=== PATIENT | male | born 1945 | race American Indian/Alaskan Native ===

== ENCOUNTER 2017-07-29 09:16 | Inpatient (IN) | payer MEDICARE, MEDICAID ==
[2017-07-29 10:34] LABS: Basophils % (Auto) 0.3 % (0.0-1.8); Eosinophils % (Auto) 1.6 % (0.0-4.3); Hematocrit 43.7 % (35.5-45.6); Hemoglobin 14.4 gm/dl (11.8-15.2); Mean Corpuscular HGB Conc 33 % (32-34); Mean Corpuscular Hemoglobin 30 pg (28-32); Mean Corpuscular Volume 91 fl (84-94); Platelet Count 280 K/mm3 (140-440); Red Blood Count 4.81 M/mm3 (3.65-5.03); Red Cell Distribution Width 15.2 % (13.2-15.2); White Blood Count 8.9 K/mm3 (4.5-11.0)
[2017-07-29 10:39] LABS: Anion Gap 18 mmol/L; BUN/Creatinine Ratio 25; Blood Urea Nitrogen 20 mg/dL (9-20); Calcium 9.6 mg/dL (8.4-10.2); Carbon Dioxide 28 mmol/L (22-30); Chloride 99.8 mmol/L (98-107); Glucose 138 mg/dL (75-100); Potassium 3.9 mmol/L (3.6-5.0); Sodium 142 mmol/L (137-145)
[2017-07-29] MEDS ORDERED: NITRO-BID 2% TP ONE (15:38)
[2017-07-29] MEDS ORDERED: MORPHINE IV PRN ×2 (15:38→16:54)
[2017-07-29] MEDS ORDERED: ZOFRAN IV PRN ×2 (15:38→16:54)
--- NOTE | 2017-07-29 15:57 | Emergency Department Report ---
HPI - General Chief Complaint: Chest Pain Time Seen by Provider: 07/29/17 15:37 - HPI HPI: Room 24 The patient is a 72-year-old male presented with a chief complaint of chest pain. Patient states his symptoms began this morning at 06:00 after eating he felt hot and became diaphoretic. Patient states he developed substernal chest tightness has been intermittent and associated with shortness of breath and nausea. Patient denies vomiting. The patient currently denies chest tightness. The patient states he's never had a stress test or cardiac catheterization Location: Chest Duration: Intermittent since 06:00 Quality: Tightness Severity: Currently 0/10 Modifying factors: [see above] Context: [see above] Mode of transportation: [not driving] ED Past Medical Hx - Past Medical History Previous Medical History?: Yes Hx Hypertension: Yes Additional medical history: High Cholesterol - Surgical History Past Surgical History?: No - Family History Family history: no significant - Social History Smoking Status: Never Smoker Substance Use Type: None ED Review of Systems ROS: Stated complaint: ABDOMINAL PAIN Other details as noted in HPI Constitutional: diaphoresis Eyes: denies: eye pain ENT: denies: throat pain Respiratory: shortness of breath Cardiovascular: chest pain Gastrointestinal: vomiting. denies: nausea Genitourinary: denies: dysuria Musculoskeletal: denies: back pain Neurological: denies: headache Physical Exam - Physical Exam Vital Signs: Vital Signs 07/29/17 07/29/17 09:32 14:51 Temperature 98.4 F 98.1 F Pulse Rate 92 H 88 Respiratory 16 17 Rate Blood Pressure 119/60 Blood Pressure 117/58 [Right] O2 Sat by Pulse 99 100 Oximetry Physical Exam: GENERAL: The patient is well-developed well-nourished male lying on stretcher not appearing to be in acute distress. [] HEENT: Normocephalic. Atraumatic. Extraocular motions are intact. Patient has moist mucous membranes. NECK: Supple. Trachea midline CHEST/LUNGS: Clear to auscultation. There is no respiratory distress noted. HEART/CARDIOVASCULAR: Regular. There is no tachycardia. There is no gallop rub or murmur. ABDOMEN: Abdomen is soft, nontender. Patient has normal bowel sounds. There is no abdominal distention. SKIN: There is no rash. There is no edema. There is no diaphoresis. NEURO: The patient is awake, alert, and oriented. The patient is cooperative. The patient has normal speech MUSCULOSKELETAL: There is no evidence of acute injury. ED Course Vital Signs 07/29/17 07/29/17 09:32 14:51 Temperature 98.4 F 98.1 F Pulse Rate 92 H 88 Respiratory 16 17 Rate Blood Pressure 119/60 Blood Pressure 117/58 [Right] O2 Sat by Pulse 99 100 Oximetry ED Medical Decision Making - Lab Data Result diagrams: 07/29/17 10:04 07/29/17 10:00 Laboratory Tests 07/29/17 07/29/17 07/29/17 10:00 10:04 12:30 WBC 8.9 RBC 4.81 Hgb 14.4 Hct 43.7 MCV 91 MCH 30 MCHC 33 RDW 15.2 Plt Count 280 Lymph % (Auto) 12.1 L [place] % (Auto) 7.5 H Eos % (Auto) 1.6 Baso % (Auto) 0.3 Lymph # 1.1 L [place] # 0.7 Eos # 0.1 Baso # 0.0 Seg Neutrophils % 78.5 H Seg Neutrophils # 7.0 Sodium 142 Potassium 3.9 Chloride 99.8 Carbon Dioxide 28 Anion Gap 18 BUN 20 Creatinine 0.8 Estimated GFR > 60 BUN/Creatinine Ratio 25 Glucose 138 H Calcium 9.6 Troponin T < 0.010 < 0.010 07/29/17 15:17 WBC RBC Hgb Hct MCV MCH MCHC RDW Plt Count Lymph % (Auto) [place] % (Auto) Eos % (Auto) Baso % (Auto) Lymph # [place] # Eos # Baso # Seg Neutrophils % Seg Neutrophils # Sodium Potassium Chloride Carbon Dioxide Anion Gap BUN Creatinine Estimated GFR BUN/Creatinine Ratio Glucose Calcium Troponin T < 0.010 - EKG Data -: EKG Interpreted by Me EKG shows normal: sinus rhythm Rate: normal - EKG Data When compared to previous EKG there are: previous EKG unavailable Interpretation: other (right bundle-branch block) - Radiology Data Radiology results: image reviewed (chest x-ray) interpreted by me: Chest x-ray-no focal infiltrates, no pneumothorax - Differential Diagnosis ACS, GERD, pericarditis Critical care attestation.: If time is entered above; I have spent that time in minutes in the direct care of this critically ill patient, excluding procedure time. ED Disposition Clinical Impression: Chest pain Disposition: 09 OP ADMIT IP TO THIS HOSP Is pt being admited?: Yes Does the pt Need Aspirin: Yes Condition: Fair Instructions: Chest Pain (ED) Referrals: PRIMARY CARE,MD [Primary Care Provider] - 3-5 Days Time of Disposition: 16:24 (Hospitalist notified (Dr Gonzalez))
[2017-07-29] MEDS ORDERED: ASPIRIN PO ONE (16:25)
[2017-07-29] MEDS ORDERED: BABY ASPIRIN PO STA (16:54)
[2017-07-29] MEDS ORDERED: PROVENTIL IH PRN (16:54)
[2017-07-29] MEDS ORDERED: TYLENOL PO PRN (16:54)
[2017-07-29] MEDS ORDERED: NITROSTAT SL PRN (16:54)
[2017-07-29] MEDS ORDERED: SODIUM CHLORIDE FLUSH SYRINGE 10 ML IV PRN (16:54)
--- NOTE | 2017-07-29 17:01 | History and Physical Report ---
History of Present Illness Chief complaint: My chest hurts History of present illness: 72 YO Male with HTN, HLD, presents to ED for evaluation. Pt states that he experienced pain in his chest that began this morning at 0600 hrs. Pt states that the pain at the time was 6/10, substernal, nonradiating, associated with nausea and diaphoresis, and shortness of breath. Pt denies worsening with exertion, or relief with rest. No reports of fever, chills, palpitations, syncope, productive cough, hemoptysis, BRBPR, unintentional weight loss, night sweats, or bone pain. Pt seen and evaluated in ED and found to have symptoms consistent with ACS. Pt admitted to telemetry. Past History Past Medical History: hypertension, hyperlipidemia Past Surgical History: No surgical history, Other (reviewed) Social history: single. denies: smoking, alcohol abuse, prescription drug abuse Family history: hypertension Medications and Allergies Allergies Allergy/AdvReac Type Severity Reaction Status Date / Time No Known Allergies Allergy Verified 07/29/17 09:31 Home Medications Medication Instructions Recorded Confirmed Last Taken Type Hydralazine HCl 50 mg PO BID 07/29/17 07/29/17 07/29/17 History Simvastatin [Zocor TAB] 10 mg PO QHS 07/29/17 07/29/17 07/29/17 History Valsartan/Hydrochlorothiazide 1 each PO DAILY 07/29/17 07/29/17 07/29/17 History [Valsartan-Hctz 320-12.5 mg Tab] Active Meds: Active Medications Acetaminophen (Tylenol) 650 mg PO Q4H PRN PRN Reason: Pain MILD(1-3)/Fever >100.5/HAYNES Albuterol (Proventil) 2.5 mg IH Q4HRT PRN PRN Reason: Shortness Of Breath Aspirin (Baby Aspirin) 324 mg PO ONCE STA Stop: 07/29/17 16:55 Miscellaneous Medication (Hydralazine Hcl [Hydralazine Hcl]) 50 mg PO BID TARYN Miscellaneous Medication (Simvastatin) 10 mg PO QHS TARYN Miscellaneous Medication (Valsartan/Hydrochlorothiazide [Valsartan-Hctz 320- 12.5 Mg Tab]) 1 each PO DAILY TARYN Morphine Sulfate (Morphine) 6 mg IV ONCE PRN PRN Reason: Pain Morphine Sulfate (Morphine) 2 mg IV Q4H PRN PRN Reason: Pain, Moderate (4-6) Nitroglycerin (Nitrostat) 0.4 mg SL Q5M PRN PRN Reason: Chest Pain Ondansetron HCl (Zofran) 8 mg IV ONCE PRN PRN Reason: Nausea Ondansetron HCl (Zofran) 4 mg IV Q8H PRN PRN Reason: N/V unrelieved by Reglan Sodium Chloride (Sodium Chloride Flush Syringe 10 Ml) 10 ml IV PRN PRN PRN Reason: LINE FLUSH Review of Systems Constitutional: no weight loss, no weight gain, no fever, no chills Ears, nose, mouth and throat: no ear pain, no ear discharge, no tinnitis, no decreased hearing, no nose pain, no nasal congestion Cardiovascular: chest pain, no orthopnea, no palpitations, no edema, no syncope Respiratory: no cough, no cough with sputum, no excessive sputum, no hemoptysis Gastrointestinal: no abdominal pain, no nausea, no vomiting, no diarrhea, no constipation Genitourinary Male: no dysuria, no hematuria, no flank pain, no discharge, no urinary frequency, no urinary hesitancy Rectal: no pain, no incontinence, no bleeding Musculoskeletal: no neck pain, no shooting arm pain, no arm numbness/tingling, no low back pain, no shooting leg pain, no leg numbness/tingling Integumentary: no rash, no pruritis, no redness, no sores, no wounds, no jaundice Neurological: no head injury, no paralysis, no weakness, no parathesias, no numbness, no tingling, no seizures Psychiatric: no anxiety, no memory loss, no change in sleep habits, no sleep disturbances, no insomnia, no hypersomnia Endocrine: no cold intolerance, no heat intolerance, no polyphagia, no excessive thirst, no polydipsia, no polyuria Hematologic/Lymphatic: no easy bruising, no easy bleeding Allergic/Immunologic: no urticaria, no allergic rhinitis, no wheezing Exam - Constitutional Vitals: Temp Pulse Resp BP Pulse Ox 98.1 F 88 17 117/89 100 07/29/17 14:51 07/29/17 16:51 07/29/17 14:51 07/29/17 16:51 07/29/17 14:51 General appearance: Present: no acute distress, well-nourished - EENT Eyes: Present: PERRL ENT: hearing intact, clear oral mucosa - Neck Neck: Present: supple, normal ROM - Respiratory Respiratory effort: normal Respiratory: bilateral: CTA - Cardiovascular Heart Sounds: Present: S1 & S2. Absent: rub, click - Extremities Extremities: pulses symmetrical, No edema Peripheral Pulses: within normal limits - Abdominal General gastrointestinal: Present: soft, non-tender, non-distended, normal bowel sounds Male genitourinary: Present: normal - Integumentary Integumentary: Present: clear, warm, dry - Musculoskeletal Musculoskeletal: gait normal, strength equal bilaterally - Psychiatric Psychiatric: appropriate mood/affect, intact judgment & insight - Neurologic Neurologic: CNII-XII intact, moves all extremities Results - Labs CBC & Chem 7: 07/29/17 17:07 07/29/17 17:07 Labs: Abnormal lab results 07/29/17 07/29/17 Range/Units 10:00 10:04 Lymph % (Auto) 12.1 L (13.4-35.0) % [place] % (Auto) 7.5 H (0.0-7.3) % Lymph # 1.1 L (1.2-5.4) K/mm3 Seg Neutrophils % 78.5 H (40.0-70.0) % Glucose 138 H (75-100) mg/dL Assessment and Plan - Patient Problems (1) ACS (acute coronary syndrome) Current Visit: Yes Status: Acute Plan to address problem: Chest pain protocol: Serial cardiac enzymes, ekg,telemetry, D-dimer, echo, stress test, Cardiology consult, morphine, oxygen, nitro tabs, aspirin. (2) HTN (hypertension) Current Visit: Yes Status: Acute Plan to address problem: Monitor bp q shift, continue medical management. (3) HLD (hyperlipidemia) Current Visit: Yes Status: Acute Plan to address problem: lipid panel, statin therapy (4) DVT prophylaxis Current Visit: Yes Status: Acute
[2017-07-29 17:26] LABS: Basophils % (Auto) 0.4 % (0.0-1.8); Eosinophils % (Auto) 1.4 % (0.0-4.3); Hematocrit 41.6 % (35.5-45.6); Hemoglobin 13.6 gm/dl (11.8-15.2); Mean Corpuscular HGB Conc 33 % (32-34); Mean Corpuscular Hemoglobin 30 pg (28-32); Mean Corpuscular Volume 90 fl (84-94); Platelet Count 283 K/mm3 (140-440); Red Blood Count 4.61 M/mm3 (3.65-5.03)
[2017-07-29 18:01] LABS: Anion Gap 16 mmol/L; BUN/Creatinine Ratio 19; Blood Urea Nitrogen 17 mg/dL (9-20); Calcium 9.5 mg/dL (8.4-10.2); Carbon Dioxide 30 mmol/L (22-30); Chloride 101.2 mmol/L (98-107); Cholesterol 170 mg/dL (50-199); Glucose 89 mg/dL (75-100); HDL Cholesterol 51 mg/dL (40-59); LDL Cholesterol,Direct 105 mg/dL (50-130); Potassium 4.1 mmol/L (3.6-5.0); Sodium 143 mmol/L (137-145); Triglycerides 71 mg/dL (2-149)
--- NOTE | 2017-07-29 20:31 | XRay Report ---
FINAL REPORT PROCEDURE: XR CHEST 1V AP TECHNIQUE: Chest radiograph anteroposterior view. CPT 07186 HISTORY: chest pain COMPARISON: No prior studies are available for comparison. FINDINGS: Heart: Normal. Mediastinum/Vessels: Normal. Lungs/Pleural space: Normal. Bony thorax: No acute osseous abnormality. Life support devices: None. IMPRESSION: No acute cardiopulmonary abnormality.
[2017-07-29] MEDS ORDERED: PRAVACHOL PO SCH (22:00)
[2017-07-29] MEDS ORDERED: NON-FORMULARY (Hydralazine Hcl [Hydralazine Hcl] 50 MG) PO SCH (22:00)
[2017-07-29] MEDS ORDERED: NON-FORMULARY (Simvastatin 10 MG) PO SCH (22:00)
[2017-07-29] MEDS: APRESOLINE PO SCH (22:30)
[2017-07-30] MEDS ORDERED: LEXISCAN IV ONE (08:54)
[2017-07-30 09:56] VITALS: BP 157/95
[2017-07-30] MEDS ORDERED: HCTZ PO SCH (10:00)
[2017-07-30] MEDS ORDERED: DIOVAN PO SCH (10:00)
[2017-07-30] MEDS ORDERED: HYDROCHLOROTHIAZIDE PO SCH (10:00)
[2017-07-30] MEDS ORDERED: VALSARTAN PO SCH (10:00)
[2017-07-30] MEDS: APRESOLINE PO SCH (11:54)
[2017-07-30] MEDS ORDERED: Fluarix Quad 2017-2018(36 MOS+ IM ONE (12:00)
[2017-07-30] MEDS ORDERED: PNEUMOVAX 23 IM ONE (12:00)
--- NOTE | 2017-07-30 14:01 | Discharge Summary ---
Providers - Providers Date of Admission: 07/29/17 16:54 Attending physician: RAÚL KYLE MD 07/29/17 Consult to Cardiac Rehabilitation [CONS] Routine Reason For Exam: Phase I Primary care physician: C[employer]PERATOR Hospitalization Reason for admission: chest pain Condition: Stable Hospital course: 72 YO Male with HTN, HLD, presents to ED for evaluation. Pt states that he experienced pain in his chest that began this morning at 0600 hrs S sugar tachycardia.. Pt states that the pain at the time was 6/10, substernal, nonradiating, associated with nausea and diaphoresis, and shortness of breath. Pt denies worsening with exertion, or relief with rest. No reports of fever, chills, syncope, productive cough, hemoptysis, BRBPR, unintentional weight loss , night sweats, or bone pain. Pt seen and evaluated in ED and found to have symptoms consistent with ACS. Pt admitted to telemetry. Patient was started on ACS protocol with heparin drip. A symptomology did not account for that. She proceeded to have a stress test which was read as negative. His symptoms has improved no further tachycardia or palpitation noted as he had earlier noted at home. I recommended that he follows up with his primary care physician and possibly an outpatient cardiology follow-up. Discharge diagnosis Atypical chest pain likely costochondritis Hypertension Hyperlipidemia Disposition: DC-01 TO HOME OR SELFCARE Time spent for discharge: 35 mins Core Measure Documentation - Palliative Care Palliative Care/ Comfort Measures: Not Applicable - Core Measures Any of the following diagnoses?: none - VTE Discharge Requirements Deep Vein Thrombosis/Pulmonary Embolism Present on Admission: No Exam - Physical Exam Narrative exam: VITAL SIGNS: Reviewed. GENERAL: The patient appeared well nourished and normally developed. Vital signs as documented. HEAD: No signs of head trauma. EYES: Pupils are equal. Extraocular motions intact. EARS: Hearing grossly intact. MOUTH: Oropharynx is normal. NECK: No adenopathy, no JVD. CHEST: Chest with clear breath sounds bilaterally. No wheezes, rales, or rhonchi. CARDIAC: Regular rate and rhythm. S1 and S2, without murmurs, gallops, or rubs. VASCULAR: No Edema. Peripheral pulses normal and equal in all extremities. ABDOMEN: Soft, without detectable tenderness. No sign of distention. No rebound or guarding, and no masses palpated. Bowel Sounds normal. MUSCULOSKELETAL: Good range of motion of all major joints. Extremities without clubbing, cyanosis or edema. NEUROLOGIC EXAM: Alert and oriented x 3. No focal sensory or strength deficits. Speech normal. Follows commands. PSYCHIATRIC: Mood normal. SKIN: No rash or lesions. - Constitutional Vitals: Temp Pulse Resp BP Pulse Ox 97.6 F 65 18 157/95 100 07/30/17 09:55 07/30/17 09:55 07/30/17 09:55 07/30/17 09:55 07/30/17 09:55 Plan Activity: advance as tolerated, fall precautions Diet: low fat Follow up with: SENA BUCHANAN MD [Staff Physician] - 7 Days Forms: Discharge Signature Page
--- NOTE | 2017-07-31 01:13 | Treadmill Report ---
INDICATION: Chest pain. FINDINGS: There is no scintigraphic evidence of myocardial ischemia. The left ventricle is normal in size and systolic function. The left ventricular ejection fraction is measured at 68%. Normal wall motion and wall thickening is noted on gated imaging. CONCLUSION: Normal perfusion scan. JOB# [id number] [place]
== END 2017-07-30 15:47 | disposition home or self-care (01) | DRG 206 ==
LOC: ED 09:16 → 4A 16:54
PROVIDERS: ADMIT Internal Medicine; ATTEND Internal Medicine
PROC: 3E0234Z Introduction of Serum, Toxoid and Vaccine into Muscle, Percutaneous Approach (ICD-10-PCS; principal; 2017-07-30)
DX: M94.0 Chondrocostal junction syndrome [Tietze] (principal); I24.9 Acute ischemic heart disease, unspecified; I10 Essential (primary) hypertension; E78.5 Hyperlipidemia, unspecified; E78.00 Pure hypercholesterolemia, unspecified; Z23 Encounter for immunization
CPT/HCPCS: 36415; 71010; 78452; 80048; 80061; 84484; 85025; 85379; 90471; 90686; 90732; 93005; 93010; 93017; 93306; 94760; 99285; A9270-GY; A9502; G0008; G0009; J2785

== ENCOUNTER 2018-02-25 17:07 | Observation (INO) | payer MEDICAID, MEDICARE ==
[2018-02-25] MEDS ORDERED: NACL 0.9% 1000 ML 1,000 ML IV ONE (17:41)
[2018-02-25 18:44] LABS: Basophils % (Auto) 0.4 % (0.0-1.8); Eosinophils # (Auto) 0.1 K/mm3 (0.0-0.4); Eosinophils % (Auto) 1.4 % (0.0-4.3); Hematocrit 41.4 % (35.5-45.6); Hemoglobin 13.4 gm/dl (11.8-15.2); Lymphocytes # (Auto) 1.1 K/mm3 (1.2-5.4); Lymphocytes % (Auto) 15.3 % (13.4-35.0); Mean Corpuscular HGB Conc 32 % (32-34); Mean Corpuscular Hemoglobin 29 pg (28-32); Mean Corpuscular Volume 91 fl (84-94); Monocytes # (Auto) 0.5 K/mm3 (0.0-0.8); Monocytes % (Auto) 7.4 % (0.0-7.3); Platelet Count 264 K/mm3 (140-440); Red Blood Count 4.56 M/mm3 (3.65-5.03); Red Cell Distribution Width 14.5 % (13.2-15.2)
[2018-02-25 18:52] LABS: INR 0.95 (0.87-1.13)
[2018-02-25 18:53] LABS: Partial Thromboplastin Time 29.7 Sec. (24.2-36.6)
[2018-02-25 19:03] LABS: Alanine Aminotransferase 81 units/L (7-56); Albumin 4.3 g/dL (3.9-5); BUN/Creatinine Ratio 25; Blood Urea Nitrogen 20 mg/dL (9-20); Calcium 9.7 mg/dL (8.4-10.2); Hemolysis Index 2; Lipase 43 units/L (13-60)
--- NOTE | 2018-02-25 20:59 | Emergency Department Report ---
ED GI Bleed HPI - General Chief complaint: GI Bleed Stated complaint: BLOOD IN STOOL Time Seen by Provider: 02/25/18 20:43 Source: patient Mode of arrival: Ambulatory Limitations: No Limitations - History of Present Illness Initial comments: Mr. Pace is a 72-year-old relatively healthy gentleman with history of hypertension and dyslipidemia. He has the onset of bright red blood per rectum today. He denies any pain. The bleeding is continuous while wearing a diaper. The bleeding was not associated with a stool. He denies any pain or weakness at this time. He does take a daily 81 mg aspirin. He does not take any other antiplatelet agents or anticoagulation. complaint: blood on toilet paper, gross hematochezia -: Gradual - Related Data Home Medications Medication Instructions Recorded Confirmed Last Taken Hydralazine HCl 50 mg PO BID 07/29/17 07/29/17 07/29/17 Simvastatin [Zocor TAB] 10 mg PO QHS 07/29/17 07/29/17 07/29/17 Valsartan/Hydrochlorothiazide 1 each PO DAILY 07/29/17 07/29/17 07/29/17 [Valsartan-Hctz 320-12.5 mg Tab] Allergies Allergy/AdvReac Type Severity Reaction Status Date / Time No Known Allergies Allergy Verified 07/29/17 09:31 ED Review of Systems ROS: Stated complaint: BLOOD IN STOOL Other details as noted in HPI Constitutional: no symptoms reported. denies: fever, malaise Respiratory: denies: cough Cardiovascular: denies: chest pain ED Past Medical Hx - Past Medical History Hx Hypertension: Yes Hx HIV: No Additional medical history: High Cholesterol - Surgical History Past Surgical History?: No - Social History Smoking Status: Never Smoker Substance Use Type: None Other Social History: Lives with siblings and mother - Medications Home Medications: Home Medications Medication Instructions Recorded Confirmed Last Taken Type Hydralazine HCl 50 mg PO BID 07/29/17 07/29/17 07/29/17 History Simvastatin [Zocor TAB] 10 mg PO QHS 07/29/17 07/29/17 07/29/17 History Valsartan/Hydrochlorothiazide 1 each PO DAILY 07/29/17 07/29/17 07/29/17 History [Valsartan-Hctz 320-12.5 mg Tab] ED Physical Exam - General Limitations: No Limitations General appearance: alert, in no apparent distress - Head Head exam: Present: atraumatic, normocephalic - Eye Eye exam: Present: normal appearance - ENT ENT exam: Present: mucous membranes moist - Neck Neck exam: Present: normal inspection. Absent: tenderness, meningismus - Respiratory Respiratory exam: Present: normal lung sounds bilaterally. Absent: respiratory distress, wheezes, rales, rhonchi - Cardiovascular Cardiovascular Exam: Present: regular rate, normal rhythm, normal heart sounds. Absent: systolic murmur, diastolic murmur, rubs, gallop - GI/Abdominal GI/Abdominal exam: Present: soft, normal bowel sounds. Absent: distended, tenderness, guarding, rebound - Rectal Rectal exam: Present: deferred, other (dark red copious amount of blood on finger and in diaper, small nonbleeding hemorrhoid) - Extremities Exam Extremities exam: Present: normal inspection - Back Exam Back exam: Present: normal inspection - Neurological Exam Neurological exam: Present: alert, oriented X3 - Psychiatric Psychiatric exam: Present: normal mood, flat affect - Skin Skin exam: Present: warm, dry, intact, normal color. Absent: rash ED Course Vital Signs 02/25/18 17:38 Temperature 98.7 F Pulse Rate 93 H Respiratory 16 Rate Blood Pressure 180/105 O2 Sat by Pulse 98 Oximetry ED Medical Decision Making - Lab Data Result diagrams: 02/25/18 18:13 02/25/18 18:13 Laboratory Results - last 24 hr 02/25/18 02/25/18 02/25/18 18:11 18:13 18:13 WBC 7.2 RBC 4.56 Hgb 13.4 Hct 41.4 MCV 91 MCH 29 MCHC 32 RDW 14.5 Plt Count 264 Lymph % (Auto) 15.3 [place] % (Auto) 7.4 H Eos % (Auto) 1.4 Baso % (Auto) 0.4 Lymph # 1.1 L [place] # 0.5 Eos # 0.1 Baso # 0.0 Seg Neutrophils % 75.5 H Seg Neutrophils # 5.4 PT 13.2 INR 0.95 APTT 29.7 Sodium Potassium Chloride Carbon Dioxide Anion Gap BUN Creatinine Estimated GFR BUN/Creatinine Ratio Glucose Calcium Total Bilirubin AST ALT Alkaline Phosphatase Total Protein Albumin Albumin/Globulin Ratio Lipase Blood Type O POSITIVE Antibody Screen Negative 02/25/18 18:13 WBC RBC Hgb Hct MCV MCH MCHC RDW Plt Count Lymph % (Auto) [place] % (Auto) Eos % (Auto) Baso % (Auto) Lymph # [place] # Eos # Baso # Seg Neutrophils % Seg Neutrophils # PT INR APTT Sodium 141 Potassium 4.5 Chloride 100.5 Carbon Dioxide 29 Anion Gap 16 BUN 20 Creatinine 0.8 Estimated GFR > 60 BUN/Creatinine Ratio 25 Glucose 106 H Calcium 9.7 Total Bilirubin 0.50 AST 55 H ALT 81 H Alkaline Phosphatase 80 Total Protein 7.6 Albumin 4.3 Albumin/Globulin Ratio 1.3 Lipase 43 Blood Type Antibody Screen Vital Signs - 24 hr 02/25/18 17:38 Temperature 98.7 F Pulse Rate 93 H Respiratory 16 Rate Blood Pressure 180/105 O2 Sat by Pulse 98 Oximetry - Medical Decision Making Mr. Pace presents with a significant amount of hematochezia. Lower GI bleed possibly due to diverticulosis or bleeding polyp. I have consulted electronic imager Dr. Joseph who agreed to follow the patient. Mr. Pace will be admitted to the hospitalist service In stable condition. I reviewed the medications. Also reviewed the H&P performed by his primary physician today Dr. Paula Buchanan. He does have a history of hypertension dyslipidemia and thyroid dysfunction. Critical care attestation.: If time is entered above; I have spent that time in minutes in the direct care of this critically ill patient, excluding procedure time. ED Disposition Clinical Impression: Lower GI bleed Disposition: OP ADMIT IP TO THIS HOSP Is pt being admited?: Yes Does the pt Need Aspirin: No Condition: Stable Referrals: PAULA BUCHANAN MD [Primary Care Provider] - 3-5 Days Time of Disposition: 21:11
[2018-02-25] MEDS ORDERED: MORPHINE IV PRN (21:26)
[2018-02-25] MEDS ORDERED: ZOFRAN IV PRN (21:26)
[2018-02-25] MEDS ORDERED: TYLENOL PO PRN (21:26)
[2018-02-25] MEDS ORDERED: SODIUM CHLORIDE FLUSH SYRINGE 10 ML IV PRN (21:26)
[2018-02-25] MEDS ORDERED: APRESOLINE IV PRN (21:35)
[2018-02-25] MEDS ORDERED: NON-FORMULARY (Hydralazine Hcl [Hydralazine Hcl] 50 MG) PO SCH (22:00)
--- NOTE | 2018-02-25 23:12 | History and Physical Report ---
History of Present Illness Date of examination: 02/25/18 Date of admission: 02/25/18 21:26 Chief complaint: Rectal bleed History of present illness: 72-year-old -Emir[place] male with history of moderate mental retardation, hypertension and hyperlipidemia was seen in the emergency department with history of rectal bleed and he is being admitted for further management. He is a poor historian. He is oriented to his name and cannot tell his age or time per month. He does follow all simple commands. Most of the history obtained from his sister. His primary care physician is Dr. Paula Soria Apparently he went to the bathroom this evening and had bright red bleeding per rectum and since being in the emergency department, he had 2 diapers changed with rectal bleed. Patient denies any pain. In fact she offers no specific complaints. He denies any chest pain shortness of breath abdominal pain nausea vomiting diarrhea constipation or dizziness. He denies any fever or chills sore throat dysphagia nasal congestion or headaches. Denies any dysuria or hesitancy or frequency of urination. Denies any loss of consciousness or weakness. Per family he never had a colonoscopy or EGD Past History Past Medical History: hypertension, hyperlipidemia, hypothyroidism (history of hypothyroidism per review of his records but patient is not on any medication) Past Surgical History: cataract removal, Other (prostate biopsy) Social history: no significant social history. denies: smoking, alcohol abuse Family history: diabetes, hypertension Medications and Allergies Allergies Allergy/AdvReac Type Severity Reaction Status Date / Time No Known Allergies Allergy Verified 07/29/17 09:31 Home Medications Medication Instructions Recorded Confirmed Last Taken Type Hydralazine HCl 50 mg PO BID 07/29/17 07/29/17 07/29/17 History Simvastatin [Zocor TAB] 10 mg PO QHS 07/29/17 07/29/17 07/29/17 History Valsartan/Hydrochlorothiazide 1 each PO DAILY 07/29/17 07/29/17 07/29/17 History [Valsartan-Hctz 320-12.5 mg Tab] Active Meds: Active Medications Acetaminophen (Tylenol) 650 mg PO Q4H PRN PRN Reason: Pain MILD(1-3)/Fever >100.5/HAYNES Hydralazine HCl (Apresoline) 10 mg IV Q6H PRN PRN Reason: Hypertension Hydralazine HCl (Apresoline) 50 mg PO BID [facility] Dextrose/Sodium Chloride (D5/0.45ns) 1,000 mls @ 42 mls/hr IV DIRECT TARYN Miscellaneous Medication (Valsartan/Hydrochlorothiazide [Valsartan-Hctz 320- 12.5 Mg Tab]) 1 each PO DAILY [facility] Morphine Sulfate (Morphine) 2 mg IV Q4H PRN PRN Reason: Pain, Moderate (4-6) Ondansetron HCl (Zofran) 4 mg IV Q8H PRN PRN Reason: Nausea And Vomiting Pantoprazole Sodium (Protonix) 40 mg PO QDAY TARYN Sodium Chloride (Sodium Chloride Flush Syringe 10 Ml) 10 ml IV BID TARYN Sodium Chloride (Sodium Chloride Flush Syringe 10 Ml) 10 ml IV PRN PRN PRN Reason: LINE FLUSH Review of Systems All systems: negative (as stated above in the history of present illness) Exam - Constitutional Vitals: Temp Pulse Resp BP Pulse Ox 98.7 F 93 H 16 136/68 97 02/25/18 17:38 02/25/18 17:38 02/25/18 17:38 02/25/18 22:30 02/25/18 22:30 General appearance: Present: no acute distress, well-nourished - EENT Eyes: Present: PERRL, EOM intact ENT: hearing intact, clear oral mucosa - Neck Neck: Present: supple, normal ROM. Absent: masses or JVD - Respiratory Respiratory effort: normal Respiratory: bilateral: CTA - Cardiovascular Rhythm: regular Heart Sounds: Present: S1 & S2 - Extremities Extremities: No edema Peripheral Pulses: within normal limits - Abdominal General gastrointestinal: Present: soft, non-tender. Absent: hepatomegaly, splenomegaly Male genitourinary: Present: deferred - Rectal Rectal Exam: deferred - Integumentary Integumentary: Present: clear - Musculoskeletal Musculoskeletal: strength equal bilaterally - Psychiatric Psychiatric: appropriate mood/affect - Neurologic Neurologic: moves all extremities Results - Labs CBC & Chem 7: 02/25/18 18:13 02/25/18 18:13 Labs: Abnormal lab results 02/25/18 02/25/18 Range/Units 18:13 18:13 [place] % (Auto) 7.4 H (0.0-7.3) % Lymph # 1.1 L (1.2-5.4) K/mm3 Seg Neutrophils % 75.5 H (40.0-70.0) % Glucose 106 H (75-100) mg/dL AST 55 H (5-40) units/L ALT 81 H (7-56) units/L Assessment and Plan - Patient Problems (1) Lower GI bleed Current Visit: Yes Status: Acute Plan to address problem: Rule out diverticular bleed Rule out hemorrhoids Rule out neoplasm Admit the patient on observation GI was consulted by the emergency department Dr. Joseph we'll see the patient in the morning His hemoglobin and hematocrit are in the normal range We will monitor hemoglobin and hematocrit every 4 hours x 2 He is medically stable Start on empiric PPI (2) Elevated LFTs Current Visit: Yes Status: Chronic Plan to address problem: This appears likely chronic as his past records reviewed shows 1 of the diagnosis as elevated LFTs There are borderline high Hold statin Await GI evaluation (3) History of mental retardation Current Visit: Yes Status: Chronic Plan to address problem: Supportive care He is not on any home medications (4) HLD (hyperlipidemia) Current Visit: No Status: Chronic Qualifiers: Hyperlipidemia type: mixed hyperlipidemia Qualified Code(s): E78.2 - Mixed hyperlipidemia Plan to address problem: Hold statin for now (5) HTN (hypertension) Current Visit: No Status: Chronic Qualifiers: Hypertension type: essential hypertension Qualified Code(s): I10 - Essential (primary) hypertension Plan to address problem: Continue hydralazine 50 mg twice a day Hold off on valsartan as he is normotensive IV hydralazine when necessary
[2018-02-25] MEDS ORDERED: D5/0.45NS 1,000 ML IV ONE (23:44)
[2018-02-25] MEDS: D5/0.45NS 1,000 ML IV SCH (23:45)
[2018-02-26] MEDS: APRESOLINE PO SCH ×2 (00:44→11:48)
[2018-02-26] MEDS: SODIUM CHLORIDE FLUSH SYRINGE 10 ML IV SCH ×3 (01:00→21:58)
[2018-02-26 02:59] LABS: Basophils % (Auto) 0.4 % (0.0-1.8); Eosinophils # (Auto) 0.2 K/mm3 (0.0-0.4); Hematocrit 36.5 % (35.5-45.6); Hemoglobin 12.2 gm/dl (11.8-15.2); Lymphocytes # (Auto) 1.7 K/mm3 (1.2-5.4); Lymphocytes % (Auto) 30.7 % (13.4-35.0); Mean Corpuscular HGB Conc 33 % (32-34); Mean Corpuscular Hemoglobin 30 pg (28-32); Mean Corpuscular Volume 90 fl (84-94); Monocytes # (Auto) 0.6 K/mm3 (0.0-0.8); Monocytes % (Auto) 11.1 % (0.0-7.3); Platelet Count 235 K/mm3 (140-440); Red Blood Count 4.07 M/mm3 (3.65-5.03); Red Cell Distribution Width 14.1 % (13.2-15.2)
[2018-02-26 03:11] LABS: BUN/Creatinine Ratio 24; Blood Urea Nitrogen 17 mg/dL (9-20); Hemolysis Index 6
[2018-02-26 08:32] LABS: Hematocrit 32.3 % (35.5-45.6); Hemoglobin 10.7 gm/dl (11.8-15.2)
[2018-02-26] MEDS ORDERED: HCTZ PO SCH (10:00)
[2018-02-26] MEDS ORDERED: DIOVAN PO SCH (10:00)
[2018-02-26] MEDS ORDERED: VALSARTAN PO SCH (10:00)
[2018-02-26] MEDS ORDERED: HYDROCHLOROTHIAZIDE PO SCH (10:00)
[2018-02-26] MEDS: PROTONIX PO SCH (11:49)
--- NOTE | 2018-02-26 12:47 | Progress Note ---
Assessment and Plan Assessment and plan: Patient is a 72 yo man with a history of moderate mental retardation, hypertension and dyslipidemia who presented to ED with rectal bleeding. -Acute Hemorrhagic anemia, H/H dropping: repeat h/h, consulted GI, patient ate this morning per Dr. Cj Sauceda -Elevated LFTs: await GI evaluation -History of mental retardation supportative measure -HLD (hyperlipidemia): Hold statin for now -HTN (hypertension): hold antihypertensives due to hypovolemia, IV hydralazine when necessary -DVT prophylaxis: scd only due to anemia History Interval history: Patient was seen and examined. Follow-up on current diagnosis of rectal bleeding. Overnight uneventful. Patient denies any chest pain, shortness breath , nausea/vomiting or severe headaches. Imaging, nursing note, chart, labs and old chart reviewed. Discussed with patient. Sister Josephine at bedside Hospitalist Physical - Physical exam Narrative exam: GEN: WDWN, NAD, Awake, Alert, Orientated x 3 HEENT: EOMI, PERRL, OP Clear, mmm dry, NECK: supple, no adenopathy, no thyromegaly, no JVD CVS/HEART: RRR, normal S1S2, pulses present bilaterally CHEST/LUNGS: CTA B, Symmetrical chest expansion, good air entry bilaterally GI/Abdomen: soft, NTND, good bowel sounds, no guarding or rebound /Bladder: no suprapubic tenderness, no CVA or paraspinal tenderness EXT/Skin: no c/c/e, no obvious rash, cap refill 2-3 seconds MSK: FROM x 4 Neuro: CN 2-12 grossly intact, no new focal deficits Psych: calm - Constitutional Vitals: Temp Pulse Resp BP Pulse Ox 98.2 F 60 16 110/66 99 02/26/18 08:27 02/26/18 11:48 02/26/18 08:27 02/26/18 11:48 02/26/18 10:41 General appearance: Present: no acute distress, well-nourished Results - Labs CBC & Chem 7: 02/26/18 08:06 02/26/18 02:32 Labs: Laboratory Last Values WBC 5.6 K/mm3 (4.5-11.0) 02/26/18 02:32 RBC 4.07 M/mm3 (3.65-5.03) 02/26/18 02:32 Hgb 10.7 gm/dl (11.8-15.2) L 02/26/18 08:06 Hct 32.3 % (35.5-45.6) L 02/26/18 08:06 MCV 90 fl (84-94) 02/26/18 02:32 MCH 30 pg (28-32) 02/26/18 02:32 MCHC 33 % (32-34) 02/26/18 02:32 RDW 14.1 % (13.2-15.2) 02/26/18 02:32 Plt Count 235 K/mm3 (140-440) 02/26/18 02:32 Lymph % (Auto) 30.7 % (13.4-35.0) 02/26/18 02:32 [place] % (Auto) 11.1 % (0.0-7.3) H 02/26/18 02:32 Eos % (Auto) 3.0 % (0.0-4.3) 02/26/18 02:32 Baso % (Auto) 0.4 % (0.0-1.8) 02/26/18 02:32 Lymph # 1.7 K/mm3 (1.2-5.4) 02/26/18 02:32 [place] # 0.6 K/mm3 (0.0-0.8) 02/26/18 02:32 Eos # 0.2 K/mm3 (0.0-0.4) 02/26/18 02:32 Baso # 0.0 K/mm3 (0.0-0.1) 02/26/18 02:32 Seg Neutrophils % 54.8 % (40.0-70.0) 02/26/18 02:32 Seg Neutrophils # 3.1 K/mm3 (1.8-7.7) 02/26/18 02:32 PT 13.2 Sec. (12.2-14.9) 02/25/18 18:13 INR 0.95 (0.87-1.13) 02/25/18 18:13 APTT 29.7 Sec. (24.2-36.6) 02/25/18 18:13 Sodium 140 mmol/L (137-145) 02/26/18 02:32 Potassium 4.8 mmol/L (3.6-5.0) 02/26/18 02:32 Chloride 104.4 mmol/L (98-107) 02/26/18 02:32 Carbon Dioxide 27 mmol/L (22-30) 02/26/18 02:32 Anion Gap 13 mmol/L 02/26/18 02:32 BUN 17 mg/dL (9-20) 02/26/18 02:32 Creatinine 0.7 mg/dL (0.8-1.5) L 02/26/18 02:32 Estimated GFR > 60 ml/min 02/26/18 02:32 BUN/Creatinine Ratio 24 % 02/26/18 02:32 Glucose 106 mg/dL (75-100) H 02/26/18 02:32 Calcium 9.0 mg/dL (8.4-10.2) 02/26/18 02:32 Total Bilirubin 0.50 mg/dL (0.1-1.2) 02/25/18 18:13 AST 55 units/L (5-40) H 02/25/18 18:13 ALT 81 units/L (7-56) H 02/25/18 18:13 Alkaline Phosphatase 80 units/L (35-129) 02/25/18 18:13 Total Protein 7.6 g/dL (6.3-8.2) 02/25/18 18:13 Albumin 4.3 g/dL (3.9-5) 02/25/18 18:13 Albumin/Globulin Ratio 1.3 % 02/25/18 18:13 Lipase 43 units/L (13-60) 02/25/18 18:13 Blood Type O POSITIVE 02/25/18 18:11 Antibody Screen Negative 02/25/18 18:11
--- NOTE | 2018-02-26 17:18 | Gastroenterology Consultation ---
History of Present Illness - Reason for Consult Consult date: 02/26/18 LGI bleeding Requesting physician: TREVOR GALLAGHER - History of Present Illness The patient is a 72 year old man with mild dementia, living at home with his mother who presented to the ER with a one day history of passing BRBPR. A large bloody stool was noted in the ER as well. He denies abdominal pain, weight loss or prior bleeding events. Neither the patient or his sister believe he has had a colonoscopy in recent years. Past History Past Medical History: hypertension, hyperlipidemia, hypothyroidism (history of hypothyroidism per review of his records but patient is not on any medication) Past Surgical History: cataract removal, Other (prostate biopsy) Social history: no significant social history. denies: smoking, alcohol abuse Family history: diabetes, hypertension Medications and Allergies Allergies Allergy/AdvReac Type Severity Reaction Status Date / Time No Known Allergies Allergy Verified 07/29/17 09:31 Home Medications Medication Instructions Recorded Confirmed Last Taken Type Hydralazine HCl 50 mg PO BID 07/29/17 02/26/18 02/25/18 09:00 History 50mg Simvastatin [Zocor TAB] 20 mg PO QHS 07/29/17 02/26/18 02/24/18 21:00 History 20mg Valsartan/Hydrochlorothiazide 1 each PO DAILY 07/29/17 02/26/18 02/25/18 09:00 History [Valsartan-Hctz 320-12.5 mg Tab] 1 tablet Aspirin [Lo-Dose Aspirin EC] 81 mg PO DAILY 02/26/18 02/26/18 02/25/18 09:00 History 81mg Multivitamin [Multiple Vitamins] 1 each PO DAILY 02/26/18 02/26/18 02/25/18 09: 00 History 1 tablet Active Meds: Active Medications Acetaminophen (Tylenol) 650 mg PO Q4H PRN PRN Reason: Pain MILD(1-3)/Fever >100.5/HAYNES Hydralazine HCl (Apresoline) 10 mg IV Q6H PRN PRN Reason: Hypertension Dextrose/Sodium Chloride (D5/0.45ns) 1,000 mls @ 42 mls/hr IV DIRECT TARYN Last Admin: 02/25/18 23:45 Dose: 42 mls/hr Morphine Sulfate (Morphine) 2 mg IV Q4H PRN PRN Reason: Pain, Moderate (4-6) Ondansetron HCl (Zofran) 4 mg IV Q8H PRN PRN Reason: Nausea And Vomiting Pantoprazole Sodium (Protonix) 40 mg PO QDAY [facility] Last Admin: 02/26/18 11:49 Dose: 40 mg Sodium Chloride (Sodium Chloride Flush Syringe 10 Ml) 10 ml IV BID [facility] Last Admin: 02/26/18 11:50 Dose: 10 ml Sodium Chloride (Sodium Chloride Flush Syringe 10 Ml) 10 ml IV PRN PRN PRN Reason: LINE FLUSH Review of Systems - Review of Systems Constitutional: no weight loss, no weight gain, no fever, no chills Eyes: no change in vision Ears, Nose, Throat: no decreased hearing, no difficulty swallowing Breasts: deferred Cardiovascular: no chest pain, no shortness of breath, no syncope Respiratory: no cough, no shortness of breath, no wheezing, no home oxygen Gastrointestinal: BRBPR, no abdominal pain, no nausea, no vomiting, no diarrhea , no constipation, no change in bowel habits, no hematemesis, no melena, no heartburn Rectal: no pain, no hemorrhoids Male Genitourinary: deferred Musculoskeletal: no gait dysfunction, no joint pain, no muscle pain, no muscle weakness Integumentary: no deferred, no rash, no pruritis, no jaundice Neurological: memory loss, no paralysis, no weakness Psychiatric: no change in sleep habits Endocrine: no cold intolerance, no heat intolerance Hematologic/Lymphatic: no easy bruising, no easy bleeding Allergic/Immunologic: no wheezing, no angioedema Exam - Constitutional Vital Signs: Temp Pulse Resp BP Pulse Ox 98.2 F 65 18 110/66 99 02/26/18 08:27 02/26/18 15:00 02/26/18 10:00 02/26/18 11:48 02/26/18 10:41 General appearance: no acute distress, well-nourished - EENT Eyes: PERRL ENT: hearing intact, clear oral mucosa, dentition normal - Neck Neck: supple, normal ROM, no masses or JVD - Respiratory Respiratory effort: normal Respiratory: bilateral: CTA - Breasts Breasts: deferred - Cardiovascular Rhythm: regular Heart Sounds: Present: S1 & S2. Absent: gallop, rub Extremities: pulses intact, No edema, normal color, Full ROM - Gastrointestinal General gastrointestinal: Present: soft, non-tender, non-distended, normal bowel sounds. Absent: hepatomegaly, splenomegaly, mass Rectal Exam: deferred - Genitourinary Male Genitourinary: deferred - Integumentary Integumentary: Present: clear, warm, dry - Neurologic Neurological: alert and oriented x3 - Psychiatric Psychiatric: appropriate mood/affect, intact judgment & insight, memory intact - Labs CBC & Chem 7: 02/26/18 08:06 02/26/18 02:32 Lab Results: Laboratory Results - last 24 hr 02/25/18 02/25/18 02/25/18 18:11 18:13 18:13 WBC 7.2 RBC 4.56 Hgb 13.4 Hct 41.4 MCV 91 MCH 29 MCHC 32 RDW 14.5 Plt Count 264 Lymph % (Auto) 15.3 [place] % (Auto) 7.4 H Eos % (Auto) 1.4 Baso % (Auto) 0.4 Lymph # 1.1 L [place] # 0.5 Eos # 0.1 Baso # 0.0 Seg Neutrophils % 75.5 H Seg Neutrophils # 5.4 PT 13.2 INR 0.95 APTT 29.7 Sodium Potassium Chloride Carbon Dioxide Anion Gap BUN Creatinine Estimated GFR BUN/Creatinine Ratio Glucose Calcium Total Bilirubin AST ALT Alkaline Phosphatase Total Protein Albumin Albumin/Globulin Ratio Lipase Blood Type O POSITIVE Antibody Screen Negative 02/25/18 02/26/18 02/26/18 18:13 02:32 02:32 WBC 5.6 RBC 4.07 Hgb 12.2 Hct 36.5 MCV 90 MCH 30 MCHC 33 RDW 14.1 Plt Count 235 Lymph % (Auto) 30.7 [place] % (Auto) 11.1 H Eos % (Auto) 3.0 Baso % (Auto) 0.4 Lymph # 1.7 [place] # 0.6 Eos # 0.2 Baso # 0.0 Seg Neutrophils % 54.8 Seg Neutrophils # 3.1 PT INR APTT Sodium 141 140 Potassium 4.5 4.8 Chloride 100.5 104.4 Carbon Dioxide 29 27 Anion Gap 16 13 BUN 20 17 Creatinine 0.8 0.7 L Estimated GFR > 60 > 60 BUN/Creatinine Ratio 25 24 Glucose 106 H 106 H Calcium 9.7 9.0 Total Bilirubin 0.50 AST 55 H ALT 81 H Alkaline Phosphatase 80 Total Protein 7.6 Albumin 4.3 Albumin/Globulin Ratio 1.3 Lipase 43 Blood Type Antibody Screen 02/26/18 08:06 WBC RBC Hgb 10.7 L Hct 32.3 L MCV MCH MCHC RDW Plt Count Lymph % (Auto) [place] % (Auto) Eos % (Auto) Baso % (Auto) Lymph # [place] # Eos # Baso # Seg Neutrophils % Seg Neutrophils # PT INR APTT Sodium Potassium Chloride Carbon Dioxide Anion Gap BUN Creatinine Estimated GFR BUN/Creatinine Ratio Glucose Calcium Total Bilirubin AST ALT Alkaline Phosphatase Total Protein Albumin Albumin/Globulin Ratio Lipase Blood Type Antibody Screen Assessment and Plan - Patient Problems (1) Lower GI bleed Current Visit: Yes Status: Acute Plan to address problem: Probable diverticular bleeding source. Rule out cancer, vascular anomalies. Bleeding has slowed. Patient has been on a regular diet all day and therefore cannot be prepped for colonoscopy tomorrow. Colonoscopy will be planned on Wednesday. Will change to clears. (2) HTN (hypertension) Current Visit: No Status: Chronic Qualifiers: Hypertension type: essential hypertension Qualified Code(s): I10 - Essential (primary) hypertension
[2018-02-26] MEDS: D5/0.45NS 1,000 ML IV SCH (20:09)
[2018-02-27] MEDS: PROTONIX PO SCH (09:50)
[2018-02-27] MEDS: SODIUM CHLORIDE FLUSH SYRINGE 10 ML IV SCH ×2 (09:50→23:49)
--- NOTE | 2018-02-27 11:55 | Progress Note ---
Assessment and Plan Assessment and plan: Patient is a 72 yo man with a history of moderate mental retardation, hypertension and dyslipidemia who presented to ED with rectal bleeding. -Acute Hemorrhagic anemia: monitor h/h closely, consulted GI -Elevated LFTs: repeat levels and monitor -History of mental retardation supportative measure -HLD (hyperlipidemia): Hold statin for now -HTN (hypertension): hold antihypertensives due to hypovolemia, IV hydralazine when necessary -DVT prophylaxis: scd only due to anemia Colonoscopy tomorrow. History Interval history: Patient was seen and examined. Follow-up on current diagnosis of rectal bleeding which has stopped per sister at bedside. Overnight uneventful. Patient denies any chest pain, shortness breath, nausea/vomiting or severe headaches. Imaging, nursing note, chart, labs and old chart reviewed. Discussed with patient. Sister Josephine at bedside Hospitalist Physical - Physical exam Narrative exam: GEN: WDWN, NAD, Awake, Alert, Orientated x 3 HEENT: EOMI, PERRL, OP Clear, mmm dry, NECK: supple, no adenopathy, no thyromegaly, no JVD CVS/HEART: RRR, normal S1S2, pulses present bilaterally CHEST/LUNGS: CTA B, Symmetrical chest expansion, good air entry bilaterally GI/Abdomen: soft, NTND, good bowel sounds, no guarding or rebound /Bladder: no suprapubic tenderness, no CVA or paraspinal tenderness EXT/Skin: no c/c/e, no obvious rash, cap refill 2-3 seconds MSK: FROM x 4 Neuro: CN 2-12 grossly intact, no new focal deficits Psych: calm - Constitutional Vitals: Temp Pulse Resp BP Pulse Ox 97.8 F 55 L 20 147/71 100 02/27/18 08:36 02/27/18 08:36 02/27/18 08:36 02/27/18 08:36 02/27/18 08:36 General appearance: Present: no acute distress, well-nourished Results - Labs CBC & Chem 7: 02/26/18 08:06 02/26/18 02:32 Labs: Laboratory Last Values WBC 5.6 K/mm3 (4.5-11.0) 02/26/18 02:32 RBC 4.07 M/mm3 (3.65-5.03) 02/26/18 02:32 Hgb 10.7 gm/dl (11.8-15.2) L 02/26/18 08:06 Hct 32.3 % (35.5-45.6) L 02/26/18 08:06 MCV 90 fl (84-94) 02/26/18 02:32 MCH 30 pg (28-32) 02/26/18 02:32 MCHC 33 % (32-34) 02/26/18 02:32 RDW 14.1 % (13.2-15.2) 02/26/18 02:32 Plt Count 235 K/mm3 (140-440) 02/26/18 02:32 Lymph % (Auto) 30.7 % (13.4-35.0) 02/26/18 02:32 [place] % (Auto) 11.1 % (0.0-7.3) H 02/26/18 02:32 Eos % (Auto) 3.0 % (0.0-4.3) 02/26/18 02:32 Baso % (Auto) 0.4 % (0.0-1.8) 02/26/18 02:32 Lymph # 1.7 K/mm3 (1.2-5.4) 02/26/18 02:32 [place] # 0.6 K/mm3 (0.0-0.8) 02/26/18 02:32 Eos # 0.2 K/mm3 (0.0-0.4) 02/26/18 02:32 Baso # 0.0 K/mm3 (0.0-0.1) 02/26/18 02:32 Seg Neutrophils % 54.8 % (40.0-70.0) 02/26/18 02:32 Seg Neutrophils # 3.1 K/mm3 (1.8-7.7) 02/26/18 02:32 PT 13.2 Sec. (12.2-14.9) 02/25/18 18:13 INR 0.95 (0.87-1.13) 02/25/18 18:13 APTT 29.7 Sec. (24.2-36.6) 02/25/18 18:13 Sodium 140 mmol/L (137-145) 02/26/18 02:32 Potassium 4.8 mmol/L (3.6-5.0) 02/26/18 02:32 Chloride 104.4 mmol/L (98-107) 02/26/18 02:32 Carbon Dioxide 27 mmol/L (22-30) 02/26/18 02:32 Anion Gap 13 mmol/L 02/26/18 02:32 BUN 17 mg/dL (9-20) 02/26/18 02:32 Creatinine 0.7 mg/dL (0.8-1.5) L 02/26/18 02:32 Estimated GFR > 60 ml/min 02/26/18 02:32 BUN/Creatinine Ratio 24 % 02/26/18 02:32 Glucose 106 mg/dL (75-100) H 02/26/18 02:32 Calcium 9.0 mg/dL (8.4-10.2) 02/26/18 02:32 Total Bilirubin 0.50 mg/dL (0.1-1.2) 02/25/18 18:13 AST 55 units/L (5-40) H 02/25/18 18:13 ALT 81 units/L (7-56) H 02/25/18 18:13 Alkaline Phosphatase 80 units/L (35-129) 02/25/18 18:13 Total Protein 7.6 g/dL (6.3-8.2) 02/25/18 18:13 Albumin 4.3 g/dL (3.9-5) 02/25/18 18:13 Albumin/Globulin Ratio 1.3 % 02/25/18 18:13 Lipase 43 units/L (13-60) 02/25/18 18:13 Blood Type O POSITIVE 02/25/18 18:11 Antibody Screen Negative 02/25/18 18:11
[2018-02-27] MEDS: GOLYTELY PO SCH ×2 (16:34→23:49)
--- NOTE | 2018-02-27 17:35 | Gastroenterology Progress Note ---
Assessment and Plan - Patient Problems (1) Lower GI bleed Current Visit: Yes Status: Acute Plan to address problem: Stable overnight. Colonoscopy tomorrow. (2) HTN (hypertension) Current Visit: No Status: Chronic Qualifiers: Hypertension type: essential hypertension Qualified Code(s): I10 - Essential (primary) hypertension Subjective Date of service: 02/27/18 Principal diagnosis: LGI bleeding Interval history: The patient reports feeling ok. Denies bleeding overnight. Now starting prep for colonoscopy tomorrow. Objective - Constitutional Vitals: Temp Pulse Resp BP Pulse Ox 98.2 F 57 L 21 137/63 99 02/27/18 15:39 02/27/18 15:39 02/27/18 15:39 02/27/18 15:39 02/27/18 15:39 General appearance: no acute distress - EENT ENT: hearing intact - Respiratory Respiratory effort: normal Respiratory: bilateral: CTA - Cardiovascular Rhythm: regular - Gastrointestinal General gastrointestinal: Present: soft, non-tender, non-distended, normal bowel sounds - Integumentary Integumentary: Present: clear, warm, dry - Neurologic Neurological: alert and oriented x3 - Labs CBC & Chem 7: 02/26/18 08:06 02/26/18 02:32
[2018-02-27 20:27] LABS: Basophils % (Auto) 0.4 % (0.0-1.8); Eosinophils # (Auto) 0.3 K/mm3 (0.0-0.4); Eosinophils % (Auto) 4.7 % (0.0-4.3); Hematocrit 33.3 % (35.5-45.6); Hemoglobin 11.2 gm/dl (11.8-15.2); Lymphocytes # (Auto) 1.5 K/mm3 (1.2-5.4); Lymphocytes % (Auto) 27.2 % (13.4-35.0); Mean Corpuscular HGB Conc 34 % (32-34); Mean Corpuscular Hemoglobin 30 pg (28-32); Mean Corpuscular Volume 90 fl (84-94); Monocytes # (Auto) 0.6 K/mm3 (0.0-0.8); Monocytes % (Auto) 10.7 % (0.0-7.3); Platelet Count 256 K/mm3 (140-440); Red Cell Distribution Width 14.1 % (13.2-15.2)
[2018-02-28 05:25] LABS: Hematocrit 30.8 % (35.5-45.6); Hemoglobin 10.6 gm/dl (11.8-15.2); Mean Corpuscular HGB Conc 34 % (32-34); Mean Corpuscular Hemoglobin 31 pg (28-32); Mean Corpuscular Volume 89 fl (84-94); Platelet Count 232 K/mm3 (140-440); Red Blood Count 3.47 M/mm3 (3.65-5.03); Red Cell Distribution Width 14.4 % (13.2-15.2)
[2018-02-28 05:36] LABS: Partial Thromboplastin Time 29.5 Sec. (24.2-36.6)
[2018-02-28 05:49] LABS: Alanine Aminotransferase 45 units/L (7-56); Albumin 3.4 g/dL (3.9-5); BUN/Creatinine Ratio 10; Blood Urea Nitrogen 8 mg/dL (9-20); Calcium 8.6 mg/dL (8.4-10.2); Hemolysis Index 3
[2018-02-28] MEDS ORDERED: NEO SYNEPHRINE ONE (10:00)
[2018-02-28] MEDS ORDERED: XYLOCAINE CARDIAC IV ONE (10:00)
--- NOTE | 2018-02-28 10:32 | Progress Note ---
Assessment and Plan Assessment and plan: Patient is a 72 yo man with a history of moderate mental retardation, hypertension and dyslipidemia who presented to ED with rectal bleeding. -Acute Hemorrhagic anemia: monitor h/h closely, consulted GI -Elevated LFTs: repeat levels and monitor -History of mental retardation supportative measure -HLD (hyperlipidemia): Hold statin for now -HTN (hypertension): hold antihypertensives due to hypovolemia, IV hydralazine when necessary -DVT prophylaxis: scd only due to anemia Colonoscopy today then home tomorrow History Interval history: Patient was seen and examined. Follow-up on current diagnosis of rectal bleeding which has stopped per sister at bedside. Overnight uneventful. Patient denies any chest pain, shortness breath, nausea/vomiting or severe headaches. Imaging, nursing note, chart, labs and old chart reviewed. Discussed with patient. Sister Josephine at bedside Hospitalist Physical - Physical exam Narrative exam: GEN: WDWN, NAD, Awake, Alert, Orientated x 3 HEENT: EOMI, PERRL, OP Clear, mmm dry, NECK: supple, no adenopathy, no thyromegaly, no JVD CVS/HEART: RRR, normal S1S2, pulses present bilaterally CHEST/LUNGS: CTA B, Symmetrical chest expansion, good air entry bilaterally GI/Abdomen: soft, NTND, good bowel sounds, no guarding or rebound /Bladder: no suprapubic tenderness, no CVA or paraspinal tenderness EXT/Skin: no c/c/e, no obvious rash, cap refill 2-3 seconds MSK: FROM x 4 Neuro: CN 2-12 grossly intact, no new focal deficits Psych: calm - Constitutional Vitals: Temp Pulse Resp BP Pulse Ox 98.8 F 57 L 18 136/45 100 02/28/18 08:08 02/28/18 08:08 02/28/18 08:08 02/28/18 08:08 02/28/18 08:08 General appearance: Present: no acute distress, well-nourished Results - Labs CBC & Chem 7: 02/28/18 05:07 02/28/18 05:07 Labs: Laboratory Last Values WBC 5.0 K/mm3 (4.5-11.0) 02/28/18 05:07 RBC 3.47 M/mm3 (3.65-5.03) L 02/28/18 05:07 Hgb 10.6 gm/dl (11.8-15.2) L 02/28/18 05:07 Hct 30.8 % (35.5-45.6) L 02/28/18 05:07 MCV 89 fl (84-94) 02/28/18 05:07 MCH 31 pg (28-32) 02/28/18 05:07 MCHC 34 % (32-34) 02/28/18 05:07 RDW 14.4 % (13.2-15.2) 02/28/18 05:07 Plt Count 232 K/mm3 (140-440) 02/28/18 05:07 Lymph % (Auto) 27.2 % (13.4-35.0) 02/27/18 20:07 [place] % (Auto) 10.7 % (0.0-7.3) H 02/27/18 20:07 Eos % (Auto) 4.7 % (0.0-4.3) H 02/27/18 20:07 Baso % (Auto) 0.4 % (0.0-1.8) 02/27/18 20:07 Lymph # 1.5 K/mm3 (1.2-5.4) 02/27/18 20:07 [place] # 0.6 K/mm3 (0.0-0.8) 02/27/18 20:07 Eos # 0.3 K/mm3 (0.0-0.4) 02/27/18 20:07 Baso # 0.0 K/mm3 (0.0-0.1) 02/27/18 20:07 Seg Neutrophils % 57.0 % (40.0-70.0) 02/27/18 20:07 Seg Neutrophils # 3.1 K/mm3 (1.8-7.7) 02/27/18 20:07 PT 13.7 Sec. (12.2-14.9) 02/28/18 05:07 INR 1.00 (0.87-1.13) 02/28/18 05:07 APTT 29.5 Sec. (24.2-36.6) 02/28/18 05:07 Sodium 145 mmol/L (137-145) 02/28/18 05:07 Potassium 3.7 mmol/L (3.6-5.0) D 02/28/18 05:07 Chloride 104.8 mmol/L (98-107) 02/28/18 05:07 Carbon Dioxide 29 mmol/L (22-30) 02/28/18 05:07 Anion Gap 15 mmol/L 02/28/18 05:07 BUN 8 mg/dL (9-20) L 02/28/18 05:07 Creatinine 0.8 mg/dL (0.8-1.5) 02/28/18 05:07 Estimated GFR > 60 ml/min 02/28/18 05:07 BUN/Creatinine Ratio 10 % 02/28/18 05:07 Glucose 77 mg/dL (75-100) 02/28/18 05:07 Calcium 8.6 mg/dL (8.4-10.2) 02/28/18 05:07 Total Bilirubin 0.40 mg/dL (0.1-1.2) 02/28/18 05:07 AST 28 units/L (5-40) 02/28/18 05:07 ALT 45 units/L (7-56) 02/28/18 05:07 Alkaline Phosphatase 64 units/L (35-129) 02/28/18 05:07 Total Protein 5.6 g/dL (6.3-8.2) L D 02/28/18 05:07 Albumin 3.4 g/dL (3.9-5) L 02/28/18 05:07 Albumin/Globulin Ratio 1.5 % 02/28/18 05:07 Lipase 43 units/L (13-60) 02/25/18 18:13 Blood Type O POSITIVE 02/25/18 18:11 Antibody Screen Negative 02/25/18 18:11
[2018-02-28] MEDS: PROTONIX PO SCH (11:00)
--- NOTE | 2018-02-28 11:11 | Anesthesia Consultation ---
Anesthesia Consult and Med Hx Date of service: 02/28/18 - Airway Anesthetic Teeth Evaluation: Poor, Edentulous (upper) ROM Head & Neck: Adequate Mental/Hyoid Distance: Adequate Mallampati Class: Class III Intubation Access Assessment: Probably Good - Pulmonary Exam CTA: Yes - Cardiac Exam Cardiac Exam: RRR - Pre-Operative Health Status ASA Pre-Surgery Classification: ASA2 Proposed Anesthetic Plan: MAC - Pre-Anesthesia Comment Pre-Anesthesia Comments: Mental Retardation - Cardiovascular System Hx Hypertension: Yes - Endocrine Hx Hypothyroidism: Yes
[2018-02-28] MEDS ORDERED: XYLOCAINE MPF 2% ONE (11:30)
[2018-02-28] MEDS ORDERED: NACL 0.9% 1000 ML 1,000 ML ONE (11:32)
[2018-02-28] MEDS ORDERED: WATER FOR IRRIG STERILE ONE (11:32)
[2018-02-28] MEDS ORDERED: WATER FOR IRRIG STERILE IR ONE (11:32)
[2018-02-28] MEDS ORDERED: DIPRIVAN 10 MG/ML IV ONE ×2 (11:46)
--- NOTE | 2018-02-28 11:47 | Anesthesia Day of Surgery ---
Anesthesia Day of Surgery - Day of Surgery Patient Examined: Yes Patient H&P Reviewed: Yes Patient is NPO: Yes
--- NOTE | 2018-02-28 12:10 | Operative Report ---
Operative Report Operative Report: Date of procedure: 02/28/2018 Preprocedure diagnosis: Lower GI bleeding Post procedure diagnosis: Mild diverticulosis of the left colon. No active bleeding Procedure: Colonoscopy to the cecum Endoscopist: Dr. Joseph Anesthesia: Monitored anesthesia care per anesthesia department Estimated blood loss: 0 Medications: Monitored anesthesia care. See separate report by anesthesia for details. After careful discussion of the nature and purpose of the procedure as well as details of the technique risks benefits and alternatives the patient gave consent. Please see recent history and physical from the office. The patient was placed in the left lateral decubitus position and medicated per anesthesia. A rectal exam was performed sphincter tone was normal there were no masses palpable. The [employer] 570 scope was passed transanally and advanced under continuous direct vision without difficulty to the cecum. The colon was well prepared. The cecum was normal. The ascending colon was normal and on forward and retroflexed views. The transverse colon was normal. The descending colon and sigmoid colon reveals scattered diverticula, mild overall. The rectum was normal on forward and retroflexed views. The procedure was well-tolerated overall and the patient was observed in recovery. Conclusions: Mild left colon diverticulosis, otherwise normal study. No active bleeding. Plan: Advance diet. Okay to go home GI kam. Will follow-up in the office in one month. Signed electronically: Sy Joseph M.D.
--- NOTE | 2018-02-28 14:17 | Discharge Summary ---
Providers - Providers Date of Admission: 02/25/18 21:26 Date of discharge: 02/28/18 Attending physician: TREVOR GALLAGHER 02/25/18 21:26 Consult to Physician [CONS] Routine Comment: Dr. Bowers spoke with Dr. Kirkland @ 2047 Consulting Provider: CATE KIRKLAND Physician Instructions: Reason For Exam: rectal bleed Primary care physician: SENA BUCHANAN Hospitalization Condition: Stable Hospital course: Patient is a 72 yo man with a history of moderate mental retardation, hypertension and dyslipidemia who presented to ED with rectal bleeding. -Acute Hemorrhagic anemia due to Diverticulosis -Elevated LFTs: repeat levels and monitor -History of mental retardation supportative measure -HLD (hyperlipidemia): Hold statin for now -HTN (hypertension): hold antihypertensives due to hypovolemia, IV hydralazine when necessary -DVT prophylaxis: scd only due to anemia "Operative Report: Date of procedure: 02/28/2018 Preprocedure diagnosis: Lower GI bleeding Post procedure diagnosis: Mild diverticulosis of the left colon. No active bleeding Procedure: Colonoscopy to the cecum Endoscopist: Dr. Kirkland Anesthesia: Monitored anesthesia care per anesthesia department Estimated blood loss: 0 Medications: Monitored anesthesia care. See separate report by anesthesia for details. After careful discussion of the nature and purpose of the procedure as well as details of the technique risks benefits and alternatives the patient gave consent. Please see recent history and physical from the office. The patient was placed in the left lateral decubitus position and medicated per anesthesia. A rectal exam was performed sphincter tone was normal there were no masses palpable. The [employer] 570 scope was passed transanally and advanced under continuous direct vision without difficulty to the cecum. The colon was well prepared. The cecum was normal. The ascending colon was normal and on forward and retroflexed views. The transverse colon was normal. The descending colon and sigmoid colon reveals scattered diverticula, mild overall. The rectum was normal on forward and retroflexed views. The procedure was well-tolerated overall and the patient was observed in recovery. Conclusions: Mild left colon diverticulosis, otherwise normal study. No active bleeding. Plan: Advance diet. Okay to go home KALE gallagher. Will follow-up in the office in one month. Signed electronically: Cate Kirkland M.D." Disposition: TO HOME OR SELFCARE Time spent for discharge: 35 minutes Core Measure Documentation - Palliative Care Palliative Care/ Comfort Measures: Not Applicable - Core Measures Any of the following diagnoses?: none - VTE Discharge Requirements Deep Vein Thrombosis/Pulmonary Embolism Present on Admission: No Has pt received <5 days of overlap therapy or INR<2.0: No Anticoagulant overlap therapy prescribed at discharge: No Contraindication No Overlap Therapy order at DC: Not Indicated Exam - Physical Exam Narrative exam: GEN: WDWN, NAD, Awake, Alert, Orientated x 3 HEENT: EOMI, PERRL, OP Clear, mmm dry, NECK: supple, no adenopathy, no thyromegaly, no JVD CVS/HEART: RRR, normal S1S2, pulses present bilaterally CHEST/LUNGS: CTA B, Symmetrical chest expansion, good air entry bilaterally GI/Abdomen: soft, NTND, good bowel sounds, no guarding or rebound /Bladder: no suprapubic tenderness, no CVA or paraspinal tenderness EXT/Skin: no c/c/e, no obvious rash, cap refill 2-3 seconds MSK: FROM x 4 Neuro: CN 2-12 grossly intact, no new focal deficits Psych: calm - Constitutional Vitals: Temp Pulse Resp BP Pulse Ox 97.7 F 55 L 18 116/68 99 02/28/18 12:02 02/28/18 12:40 02/28/18 12:40 02/28/18 12:40 02/28/18 12:40 Plan Activity: other (no strenous activities) Diet: low salt Follow up with: SENA BUCHANAN MD [Primary Care Provider] - 3-5 Days CATE KIRKLAND MD [Staff Physician] - 7 Days Forms: Accompanied Note Prescriptions: Pantoprazole [Protonix TAB] 40 mg PO QDAY #30 tablet
[2018-02-28 15:53] VITALS: BP 142/62
== END 2018-02-28 14:55 | disposition home or self-care (01) ==
LOC: ED 17:07 → 2B-ACE 21:26
PROVIDERS: ADMIT Internal Medicine; ATTEND Internal Medicine
DX: K92.2 Gastrointestinal hemorrhage, unspecified (principal); I10 Essential (primary) hypertension; E78.5 Hyperlipidemia, unspecified; E03.9 Hypothyroidism, unspecified
CPT/HCPCS: 36415; 45378; 80048; 80053; 83690; 85014; 85018; 85025; 85027; 85610; 85730; 86850; 86900; 86901; 93005; 93010; 99285; G0378; J2001; J2370; J2704; J7030